=== PATIENT | female | born 2000 | race Caucasian/White ===

== ENCOUNTER 2022-10-07 08:08 | Emergency (ER) | payer BC, SELFPAY ==
--- NOTE | ~2022-10-07 | XR_ITS ---
EXAMINATION: XR foot LT min 3V DATE: 10/07/2022 08:50 INDICATION: Left foot injury and pain. TECHNIQUE: 4 views of left foot were obtained. COMPARISON: None. FINDINGS: Bone alignment is normal. No fracture. 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 There is mild osteoarthritis of first and fifth metatarsophalangeal joints. IMPRESSION: 1. Mild polyarticular osteoarthritis. Reviewed, dictated and finalized at location A.
[2022-10-07 08:39] VITALS: BP 127/87; PULSE 77; RESP 18; TEMP 36.3; O2SAT 100
--- NOTE | 2022-10-07 08:42 | ED.LOWEXIN ---
HPI - Extremity Injury (Lower) General Chief Complaint: Extremity Injury, Lower Stated Complaint: lt foot injury Time Seen by Provider: 10/07/22 08:22 Source: patient Mode of arrival: ambulatory Limitations: no limitations History of Present Illness HPI Narrative: 22-year-old female presents to [facility] complaints of pain to dorsal aspect of her left foot for the past 3 days. Patient reports that she was under the influence of alcohol 3 days ago, when she missed 1 step and fell injuring her left foot. Patient is unsure of the exact injury. Patient denies swelling, bruising, numbness, tingling, open wounds or erythema. Patient has been elevating, applying ice and taking [id number] ibuprofen with minimal relief. Patient reports that she has fractured her left foot in the past. Patient denies hitting head, loss consciousness, nausea or vomiting MD complaint: foot injury and fall Onset (ago): day(s) (3) Injury: Left: foot Exacerbating factors: movement Context: fall Treatments prior to arrival: cold therapy and NSAIDS Related Data Home Medications Medication Instructions Recorded Confirmed No Home Medications 10/07/22 10/07/22 Allergies Allergy/AdvReac Type Severity Reaction Status Date / Time No Known Allergies Allergy Verified 10/07/22 08:42 Review of Systems Constitutional: Constitutional: Denies chills, Denies fatigue, Denies fever(s) and Denies weakness ENT: Denies vertigo and Denies dizziness Cardiovascular: Cardiovascular: Denies chest pain Respiratory: Respiratory: Denies cough, Denies dyspnea and Denies wheezing Gastrointestinal: Gastrointestinal: Denies diarrhea, Denies nausea and Denies vomiting Musculoskeletal: Musculoskeletal: Reports arthralgias Comments: Pain to dorsal aspect of the foot Integumentary/Breasts: Skin/Breast: Denies rash Neurologic: Denies dizziness, Denies syncope and Denies headache(s) PMFSH Social History Social History (Updated 10/07/22 @ 08:44 by Chuyita Gutierrez APRN) Smoking status: Current every day smoker Comments At time of signature, I agree with nursing past medical, surgical, social and family history. There is no relevant family history pertinent to the presenting complaint. Exam Const: General: healthy appearing and no acute distress Nutritional Appearance: well nourished Orientation/consciousness: patient oriented x3 Limitations: no limitations Neck: Neck: normal visual inspection Resp: Effort & Inspection: normal respiratory effort and not labored Auscultation: clear to auscultation bilaterally, no crackles, no rales, no rhonchi and no wheezes Cardio: Rate: regular rate Rhythm: regular rhythm Heart sounds: no murmurs Skin: General skin exam: normal color Rashes: no rashes Wounds: no wounds Neuro: General: patient oriented x3 Speech: normal speech Extrem: General: normal to inspection, no clubbing, cyanosis or edema and no pedal edema Other: Pain noted to dorsal aspect of left foot upon palpation. There is no swelling, bruising, erythema or open wounds noted. Pulses are within normal limits. Increased pain noted with range of motion. Slight limping noted with gait Psych: Mental Status: mental status grossly normal Affect: normal affect Attitude: cooperative Course Course Level of Care: Express Care Visit Vital Signs Vital signs: Vital Signs Temperature 36.3 C L 10/07/22 08:39 Pulse Rate 77 10/07/22 08:39 Respiratory Rate 18 10/07/22 08:39 Blood Pressure 127/87 10/07/22 08:39 Pulse Oximetry 100 10/07/22 08:39 Oxygen Delivery Room Air 10/07/22 08:39 Temperature 36.3 C L 10/07/22 08:39 Pulse Rate 77 10/07/22 08:39 Respiratory Rate 18 10/07/22 08:39 Blood Pressure 127/87 10/07/22 08:39 Pulse Oximetry 100 10/07/22 08:39 Oxygen Delivery Room Air 10/07/22 08:39 MDM - Extremity Injury (Lower) MDM Narrative Medical decision making narrative: Rice therapy disc
== END 2022-10-07 09:10 | disposition home or self-care (01) ==
PROVIDERS: Emergency Provider Nurse Practitioner Family
DX: S93.602A Unspecified sprain of left foot, initial encounter (principal); W10.9XXA Fall (on) (from) unspecified stairs and steps, initial encounter; F17.200 Nicotine dependence, unspecified, uncomplicated
CPT/HCPCS: 73630; 99203; G0463